=== PATIENT | female | born 1990 | race African-American/Black ===

== ENCOUNTER 2016-07-14 05:27 | Emergency (ER) | payer MEDICAID ==
[~2016-07-14] VITALS: Ht 154.9 cm; Wt 59.0 kg
[~2016-07-14 05:27] MED LIST: AMOX1TAB16 PO; FERR-43 PO
[2016-07-14 06:40] VITALS: BP 128/86
[2016-07-14] MEDS ORDERED: ACETAMINOPHEN 500MG TABLET PO ONE (06:45)
== END 2016-07-14 07:49 | disposition home or self-care (01) ==
LOC: ER 05:27
DX: K08.89 Other specified disorders of teeth and supporting structures (principal); Z91.018 Allergy to other foods; Z79.899 Other long term (current) drug therapy; Z98.890 Other specified postprocedural states
CPT/HCPCS: 99283